=== PATIENT | male | born 1965 | race Caucasian/White ===

== ENCOUNTER 2020-12-24 23:20 | Inpatient (IN) | payer OTHER ==
[~2020-12-24] VITALS: Ht 180.3 cm; Wt 81.6 kg
[2020-12-24 23:20] VITALS: BP 135/84
[~2020-12-24 23:20] MED LIST: ADULT LOW DOSE81 MG PO
[2020-12-24 23:45] LABS: ABSOLUTE NEUTROPHILS 6.9 thou/uL (1.4-8.2); BASOPHILS 0.4 % (0.0-2.0); EOSINOPHILS 0.2 % (0.0-3.0); HEMATOCRIT 40.7 % (42.0-52.0); HEMOGLOBIN 14.2 gm/dL (14.0-18.0); LYMPHOCYTES 10.3 % (24.0-44.0); MCHC 34.9 g/dL (28.0-37.0); MCV 88.6 fL (80.0-100.0); MONOCYTES 17.1 % (1.0-8.0); PLATELET COUNT 229 thou/uL (150-400); RDW 13.4 % (10.5-14.5); WBC 9.6 thou/uL (4.0-11.0)
[2020-12-24 23:57] LABS: CALCIUM 8.5 mg/dL (8.5-10.1); CREATININE 1.3 mg/dL (0.7-1.3); POTASSIUM 3.7 mmol/L (3.5-5.1)
[2020-12-25] VITALS (7 sets, daily range): BP systolic 117–135; BP diastolic 68–84
[2020-12-25 00:02] LABS: ALBUMIN 3.6 g/dL (3.4-5.0); TOTAL BILIRUBIN 0.6 mg/dL (0.2-1.0); TOTAL PROTEIN 7.9 g/dL (6.4-8.2)
--- NOTE | 2020-12-25 03:40 | NUR ---
PT ADMITTED FROM THE ED WITH C/O ABD PAIN AND DIAGNOSIS OF DIVERTICULITIS.PT IS FROM HOME AND WAS SEND A [facility] AND WAS TOLD HE HAD A PERFORATED BOWEL AND THEY WANTED TO DO A SURGERY AND PT LEFT AMA.PT IS A/O X4.PT IS UP WITH X1 .PT C/O PAIN OF LLQ OF ABD.PT USING A URINAL .PT IS NPO .IV ACCESS ON RT AC WITH NS AT 126CC/HR.ADMISSION DONE AND ASSESSMENT COMPLETED.PT HAS FENTANYL PRN FOR PAIN MANAGEMENT.WILL CONTINUE T MONITOR
--- NOTE | 2020-12-25 07:04 | EKG ---
[address] [address] ELECTROCARDIOGRAM REPORT Name: GUANACO OLIVA Room #: 456-P ADM IN M.R.#: [id number] Admission: 12/25/20 Attend Phys: Dioni Atkinson MD Discharge: Date of : 63 Report #: [id number] [facility] ED Test Date: 2020-12-24 Test Time: 23:28:51 Pat Name: GUANACO OLIVA Department: Room: [facility] Gender: M Darklight Inspector: ASHKAN : 1965 Requested By: Patric Flower Order Number: [id number] MD: Maykel Busby Measurements Intervals Orient Rate: 84 P: 49 FL: 133 QRS: 26 QRSD: 108 T: 52 QT: 349 QTc: 413 Interpretive Statements Sinus rhythm Borderline repolarization abnormality Compared to ECG 02/04/2011 10:06:45 Sinus bradycardia no longer present Electronically Signed On 12-25-2020 7:03:47 CDT by Maykel Busby [email or web address] <ELECTRONICALLY SIGNED> By: Maykel Busby MD, [facility] 12/25/20 [id number] Maykel Busby MD, FAC /EPI
--- NOTE | 2020-12-25 11:50 | NUR ---
PT ADMITTED RELATED TO DIVERTICULITIS AND ABD PAIN. PT HAD BEEN AT [facility] AND HAD LEFT THERE AM TO COME HERE. 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 PT INDICATED NO DME OR HH HX. PT'S PCP IS DR. JAMIE DUMONT. 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 PT INDICATED HE ANTICIPATES RETURNING HOME ONCE MEDICALLY STABLE. PT IS ON IV ZOSYN AND FLAGYL. GEN SURGERY CONSULTED. CM FOLLOWING REGARDING DC PLANNING.
--- NOTE | 2020-12-25 19:37 | NUR ---
Assumed pt care at 7am.Pt in bed sleeping on and off. Assessment completed. vss.Pt and family worried about when pt will be going for surgery today. Several calls made to Dr Platt group. Dr Platt later saw the pt and said pt will be on iv antibiotic only for now.Pt and family notified. Fentanyl ivp given with relief.Will continue to monitor.
[2020-12-26 04:00] VITALS: BP 119/82
[2020-12-26 04:47] LABS: HEMATOCRIT 39.5 % (42.0-52.0); HEMOGLOBIN 13.6 gm/dL (14.0-18.0); MCH 30.6 pg (26.0-34.0); MCHC 34.4 g/dL (28.0-37.0); MCV 88.9 fL (80.0-100.0); RBC 4.44 mil/uL (4.50-6.00); RDW 13.4 % (10.5-14.5); WBC 7.4 thou/uL (4.0-11.0)
[2020-12-26 04:49] LABS: CREATININE 1.1 mg/dL (0.7-1.3); POTASSIUM 3.8 mmol/L (3.5-5.1)
--- NOTE | 2020-12-26 07:35 | NUR ---
PT OBSERVED LYING ON HIS BED WATCHING TV AT SHIFT CHANGE.PT DENIED PAIN ALL NIGHT.URINAL AT BEDSIDE.SR ON TELE.PT STILL NPO.PT REQUESTING TO EAT BUT WAS REMINDED OF HIS NPO STATUS.PT CONT ON IVF AND IV ABX ORDERED.REPORT TO AM NURSE.
[2020-12-26 16:50] VITALS: BP 132/86
--- NOTE | 2020-12-26 19:45 | NUR ---
Assumed pt care this am, VS stable. Pain was minimal through out the shift. Seen by surgeon, started on clear liquids. POC followed with no signs or verbalizations of distress noted. at the bed side this pm. endorsed to the night nurse.
[2020-12-26 20:03] VITALS: BP 129/80
--- NOTE | 2020-12-27 07:14 | NUR ---
PT AMBULATING TO BATHROOM INDEPENDENTLY AND IS TOLERATING WELL. FENTANYL PROVIDING PAIN RELIEF. DENIES NAUSEA. RESTING COMFORTABLY. NO NEEDS VOICED. CALL LIGHT WITHIN REACH. FREQUENT OBSERVATION.
[2020-12-27 09:00] VITALS: BP 133/76
[2020-12-27] MEDS ORDERED: FLAGYL500 M1 PO (14:07)
[2020-12-27] MEDS ORDERED: CIPRO500 M1 PO (14:08)
[2020-12-27 14:18] VITALS: BP 133/76
[2020-12-27 16:20] VITALS: BP 139/91
--- NOTE | 2020-12-27 17:46 | NUR ---
Assumed pt care this am, VS stable, pain is very minimal, pt refused pain medications. Diet was advianced and tolerated well. Runs NSR on the tele. Had a bm today, was seen by GI and surgery. DC instructions and prescriptions given to the pt. Finishing IV dose of abx, IV to be removed, awaiting family for bead picker around 6:30 pm. POC followed with no signs or verbalizations of distress noted.
== END 2020-12-27 18:17 | disposition home or self-care (01) | DRG 391 ==
LOC: ER 23:20 → EROBS 12-25 01:41 → 4W 12-25 01:41
PROVIDERS: Emergency Medicine; Nurse Practitioner Family; ADMIT Hospitalist; ATTEND Hospitalist
DX: K57.20 Diverticulitis of large intestine with perforation and abscess without bleeding (principal); K65.9 Peritonitis, unspecified; I10 Essential (primary) hypertension; Z20.822 Contact with and (suspected) exposure to COVID-19; Z79.82 Long term (current) use of aspirin; Z88.8 Allergy status to other drugs, medicaments and biological substances
CPT/HCPCS: 10045